=== PATIENT | female | born 1985 | race Caucasian/White ===

== ENCOUNTER 2021-08-07 16:30 | Inpatient (IN) | payer BC ==
[~2021-08-07] VITALS: Ht 154.9 cm; Wt 98.4 kg
[2021-08-07] MEDS ORDERED: VITAMIN D21250 MCG PO (20:10)
[2021-08-07] MEDS ORDERED: AMBIEN5 MG PO (20:10)
[2021-08-07] MEDS ORDERED: CYCLOBENZAPRINE10 MG PO (20:12)
[2021-08-07] MEDS ORDERED: ESTRACE 1 MG TAB1 MG PO (20:13)
[2021-08-07] MEDS ORDERED: SINGULAIR10 MG PO (20:14)
[2021-08-07] MEDS ORDERED: OMEPRAZOLE20 MG PO (20:14)
[2021-08-07] MEDS ORDERED: PAROXETINE HCL20 MG PO (20:15)
[2021-08-07] MEDS ORDERED: RIZATRIPTAN10 MG PO ×2 (20:16)
[2021-08-07] MEDS ORDERED: KLONOPIN0.5 MG PO (20:17)
[2021-08-08 06:16] LABS: RED BLOOD COUNT 4.56 M/UL (4.00-5.10); WHITE BLOOD COUNT 9.8 K/UL (4.5-11.0)
[2021-08-08 09:11] LABS: BUN/CREATININE RATIO 11 (0-10)
[2021-08-10 13:17] LABS: HEMOGLOBIN 11.6 gm/dl (12.3-15.3); RED BLOOD COUNT 4.46 M/UL (4.00-5.10)
--- NOTE | 2021-08-11 18:32 | NUR ---
DR. Pierson seen patient this morning with no mentioned of discharge. patient encourage to eat and see how she tolerates po intake. patient eaten lunch and dinner with no reported n/v/diarrhe. will cont to monitor
[2021-08-12] MEDS ORDERED: AUGMENTIN 875-1 EACH PO (11:20)
[2021-08-12] MEDS ORDERED: ZOFRAN4 MG PO (11:20)
== END 2021-08-12 14:30 | disposition home or self-care (01) | DRG 392 ==
LOC: M/S 18:42
PROVIDERS: ADMIT Surgery
DX: K57.80 Diverticulitis of intestine, part unspecified, with perforation and abscess without bleeding (principal); Z68.41 Body mass index [BMI] 40.0-44.9, adult; Z20.822 Contact with and (suspected) exposure to COVID-19; E66.9 Obesity, unspecified; G47.00 Insomnia, unspecified; F32.A Depression, unspecified; J30.2 Other seasonal allergic rhinitis; Z90.710 Acquired absence of both cervix and uterus; Z90.49 Acquired absence of other specified parts of digestive tract; Z88.1 Allergy status to other antibiotic agents; Z28.21 Immunization not carried out because of patient refusal
CPT/HCPCS: 36415; 80048; 85027; J1956; J2270; J2405; J2543; J3480

== ENCOUNTER → 2021-12-22 | Outpatient (CLI) | payer BC ==
[~2021-12-22] MED LIST: AMBIEN5 MG PO; AUGMENTIN 875-1 EACH PO; CYCLOBENZAPRINE10 MG PO; ESTRACE 1 MG TAB1 MG PO; KLONOPIN0.5 MG PO; OMEPRAZOLE20 MG PO; PAROXETINE HCL20 MG PO; RIZATRIPTAN10 MG PO; SINGULAIR10 MG PO; VITAMIN D21250 MCG PO; ZOFRAN4 MG PO
== END ==
LOC: LBRF 16:37
DX: Z20.822 Contact with and (suspected) exposure to COVID-19 (principal)
CPT/HCPCS: U0003